=== PATIENT | male | born 1970 | race Caucasian/White ===

== ENCOUNTER 2019-08-21 09:46 | Emergency (ER) | payer SELFPAY ==
[~2019-08-21] VITALS: Ht 175.3 cm; Wt 88.6 kg
[2019-08-21 10:10] VITALS: BP 117/65
--- NOTE | 2019-08-21 10:18 | PHYS DOC ---
Past Medical History Past Medical History: No Pertinent History Past Surgical History: No Surgical History Smoking Status: Current Every Day Smoker Alcohol Use: None Drug Use: None Adult General Chief Complaint Chief Complaint: PAIN ON URINATION [facility] Patient is a 48 year old male without history of medical problem who presents with pain with urination. Patient complaining of urinary frequency and dysuria for 1 week and hematuria since yesterday without abdominal pain, nausea vomiting, fever and chills, back pain and flank pain. Patient states he had history of UTI several years ago and treated with antibiotics without problem. Patient denies penile discharge and having new sexual partner. Review of Systems Review of Systems Constitutional: Denies fever or chills [] Eyes: Denies change in visual acuity, redness, or eye pain [] HENT: Denies nasal congestion or sore throat [] Respiratory: Denies cough or shortness of breath [] Cardiovascular: No additional information not addressed in HPI [] GI: Denies abdominal pain, nausea, vomiting, bloody stools or diarrhea [] : Reports dysuria and hematuria Musculoskeletal: Denies back pain or joint pain [] Integument: Denies rash or skin lesions [] Neurologic: Denies headache, focal weakness or sensory changes [] Endocrine: Denies polyuria or polydipsia [] All other systems were reviewed and found to be within normal limits, except as documented in this note. Allergies Allergies Allergies Coded Allergies Type Severity Reaction Last Updated Verified No Known Drug Allergies 01/07/15 No Physical Exam Physical Exam Constitutional: Well developed, well nourished, no acute distress, non-toxic appearance. [] HENT: Normocephalic, atraumatic. Eyes: PERRLA, EOMI, conjunctiva normal, no discharge. [] Neck: Normal range of motion, no tenderness, supple, no stridor. [] Cardiovascular:Heart rate regular rhythm, no murmur [] Lungs & Thorax: Bilateral breath sounds clear to auscultation [] Abdomen: Bowel sounds normal, soft, no tenderness, no masses, no pulsatile masses. [] Skin: Warm, dry, no erythema, no rash. [] Back: No tenderness, no CVA tenderness. [] Extremities: No tenderness, no cyanosis, no clubbing, ROM intact, no edema. [] Neurologic: Alert and oriented X 3, no focal deficits noted. [] Psychologic: Affect normal, judgement normal, mood normal. [] Current Patient Data Vital Signs Vital Signs Date Time Temp Pulse Resp B/P (MAP) Pulse Ox O2 Delivery O2 Flow Rate FiO2 08/21/19 10:10 98.6 86 20 117/65 (82) 97 Room Air 98.6 Lab Values Laboratory Tests Test 08/21/19 09:30 Urine Collection Type Unknown Urine Color Red Urine Clarity Bloody Urine pH (<5.0-8.0) Urine Specific [place] (1.000-1.030) Urine Protein mg/dL (NEG-TRACE) Urine Glucose (UA) mg/dL (NEG) Urine Ketones (Stick) mg/dL (NEG) Urine Blood (NEG) Urine Nitrite (NEG) Urine Bilirubin (NEG) Urine Urobilinogen Dipstick mg/dL (0.2 mg/dL) Urine Leukocyte Esterase (NEG) Urine RBC Tntc /HPF (0-2) Urine WBC Field obscured /HPF (0-4) Urine Squamous Epithelial Cells /LPF Urine Bacteria /HPF (0-FEW) EKG EKG [] Radiology/Procedures Radiology/Procedures [] Course & Med Decision Making Course & Med Decision Making Pertinent Labs reviewed. (See chart for details) Evaluation of patient nurse showed 48-year-old male patient with complaining of urinary symptoms for 1 week and hematuria since last night. Patient had unremarkable physical exam. UA showed loaded blood in urine. Patient was informed to follow-up with urology if not getting better with treatment with Cipro and Pyridium. I've spoken with the patient and/or caregivers. I've explained the patient's condition, diagnosis and treatment plan based on information available to me at this time. I've answered the patient's and/or caregivers questions and addressed any concerns. The patient and/or caregivers have a good understanding the patient's diagnosis, condition and treatment plan as can be expected at this point. Vital signs have been stabilized. The patient's condition is stable for discharge from the emergency department. The patient will pursue further outpatient evaluation with her primary care provider or other designated consulting physician as outlined in the discharge instructions. Patient and/or caregivers are agreeable to this plan of care and follow-up instructions have been explained in detail. The patient and/or caregivers have received these instructions in written format and expressed understanding of these discharge instructions. The patient and her caregivers are aware that if any significant change in condition or worsening of symptoms should prompt him to immediately return to this of the closest emergency department. If an emergent department is not readily available I would encourage him to call 911. Rupinder Disclaimer Rupinder Disclaimer This electronic medical record was generated, in whole or in part, using a voice recognition dictation system. Departure Departure Impression: Primary Impression: Hematuria Additional Impression: Dysuria Disposition: HOME, SELF-CARE (At 1109) Condition: STABLE Referrals: NO PCP (PCP) Patient Instructions: Dysuria, Hematuria, Adult, Urinary Tract Infection Additional Instructions: Drink plenty of liquids Follow-up with your primary care physician in 3-5 days Return to ER if not getting better Follow-up with urologist at [facility] if not getting better in 5 to 7 days Thank you for visiting [facility]. We appreciate you trusting us with your care. If any additional problems come up don't hesitate to return to visit us. Please follow up with your primary care provider so they can plan additional care if needed and know about the problem that you had. If symptoms worsen come back to the Emergency Department. Any concerning symptoms that start such as chest pain, shortness of air, weakness or numbness on one side of the body, running high fevers or any other concerning symptoms return to the ER. Scripts Phenazopyridine Hcl (PYRIDIUM) 100 Mg Tablet 100 MG PO TID for dysuria, #10 TAB PRN dysuria Prov: VINCE CISNEROS MD 08/21/19 Ciprofloxacin Hcl (CIPRO) 250 Mg Tablet 1 TAB PO BID for infection, #14 TAB Prov: VINCE CISNEROS MD 08/21/19 Problem Qualifiers Primary Impression: Hematuria Hematuria type: gross Qualified Codes: R31.0 - Gross hematuria VINCE CISNEROS MD Aug 21, 2019 10:18
[2019-08-21 10:43] LABS: CLARITY,URINE BLOODY; COLOR,URINE RED
[2019-08-21 10:44] LABS: RBC,URINE TNTC /HPF (0-2)
[2019-08-21 10:46] LABS: WBC,URINE FIELD OBSCURED /HPF (0-4)
[2019-08-21] MEDS ORDERED: CIPR250T30 PO (11:11)
[2019-08-21] MEDS ORDERED: PHEN100T82 PO (11:12)
== END 2019-08-21 11:22 | disposition home or self-care (01) ==
LOC: ER 09:46
DX: R31.0 Gross hematuria (principal); R30.0 Dysuria; R30.9 Painful micturition, unspecified; F17.200 Nicotine dependence, unspecified, uncomplicated
CPT/HCPCS: 81001; 87086; 99283

== ENCOUNTER 2019-11-23 04:36 | Emergency (ER) | payer SELFPAY ==
[~2019-11-23] VITALS: Ht 175.3 cm; Wt 91.0 kg
[~2019-11-23 04:36] MED LIST: CIPR250T30 PO; PHEN100T82 PO
--- NOTE | 2019-11-23 05:29 | PHYS DOC ---
Past Medical History Past Medical History: No Pertinent History Past Surgical History: No Surgical History Smoking Status: Current Every Day Smoker Alcohol Use: None Drug Use: None General Adult EDM: Chief Complaint: BLOOD IN URINE HPI: HPI: Patient is a 48 year old male who presents with complaint of urinary discomfort and hematuria for the last day. Patient states that he has a history of urinary tract infections and this is exactly how they start. He denies any fever. He denies any nausea or vomiting. He does indicate that he has urinary frequency as well. [] Review of Systems: Review of Systems: Constitutional: Denies fever or chills. [] Respiratory: Denies cough or shortness of breath. [] Cardiovascular: Denies chest pain or edema. [] : Complains of dysuria. [] Musculoskeletal: Denies back pain or joint pain. [] Integument: Denies rash. [] Heart Score: Risk Factors: Risk Factors: DM, Current or recent (<one month) smoker, HTN, HLP, family history of CAD, obesity. Risk Scores: Score 0 - 3: 2.5% MACE over next 6 weeks - Discharge Home Score 4 - 6: 20.3% MACE over next 6 weeks - Admit for Clinical Observation Score 7 - 10: 72.7% MACE over next 6 weeks - Early Invasive Strategies Allergies: Allergies: Allergies Coded Allergies Type Severity Reaction Last Updated Verified No Known Drug Allergies 01/07/15 No Physical Exam: PE: Constitutional: Well developed, well nourished, no acute distress, non-toxic appearance. [] Cardiovascular: Regular rate and rhythm [] Lungs & Thorax: Bilateral breath sounds clear to auscultation [] Abdomen: Bowel sounds normal, soft, with mild suprapubic tenderness. [] Skin: Warm, dry, no erythema, no rash. [] EKG: EKG: [] Radiology/Procedures: Radiology/Procedures: [] Course & Med Decision Making: Course & Med Decision Making Pertinent Labs and Imaging studies reviewed. (See chart for details) [] Dragon Disclaimer: Dragon Disclaimer: This electronic medical record was generated, in whole or in part, using a voice recognition dictation system. Departure Departure Impression: Primary Impression: UTI (urinary tract infection) Qualified Codes: N39.0 - Urinary tract infection, site not specified; R31.9 - Hematuria, unspecified Additional Impression: Hematuria Qualified Codes: R31.9 - Hematuria, unspecified Disposition: 01 HOME, SELF-CARE Condition: STABLE Referrals: NO PCP (PCP) Patient Instructions: Hematuria, Adult, Urinary Tract Infection Scripts Phenazopyridine Hcl (PYRIDIUM) 100 Mg Tablet 1 TAB PO TID for urinary discomfort for 5 Days, #15 TAB 0 Refills Prov: JUSTIN KIRKLAND Jr. DO 11/23/19 Sulfamethoxazole/Trimethoprim (BACTRIM DS TABLET) 1 Each Tablet 1 TAB PO BID for 10 Days, #20 TAB 0 Refills Prov: JUSTIN KIRKLAND Jr. DO 11/23/19 Justicifation of Admission Dx: Justifications for Admission: Justification of Admission Dx: Comment: (Not applicable) JUSTIN KIRKLAND Jr. DO Nov 23, 2019 05:29
[2019-11-23 05:46] LABS: CLARITY,URINE BLOODY; COLOR,URINE BROWN
[2019-11-23 05:47] LABS: RBC,URINE FIELD OBSCURED /HPF (0-2)
[2019-11-23 05:48] LABS: AMORPHOUS SEDIMENT,UR PRESENT /HPF; BACTERIA,URINE MODERATE /HPF (0-FEW)
[2019-11-23] MEDS ORDERED: SULF1TAB24 PO (06:01)
[2019-11-23] MEDS ORDERED: PHEN100T82 PO (06:01)
[2019-11-23 06:37] VITALS: BP 135/75
== END 2019-11-23 06:20 | disposition home or self-care (01) ==
LOC: ER 04:36
DX: N39.0 Urinary tract infection, site not specified (principal); R31.9 Hematuria, unspecified; F17.200 Nicotine dependence, unspecified, uncomplicated
CPT/HCPCS: 81001; 87086; 99283

== ENCOUNTER 2019-11-26 11:23 | Emergency (ER) | payer SELFPAY ==
[~2019-11-26] VITALS: Ht 175.3 cm; Wt 91.0 kg
[~2019-11-26 11:23] MED LIST changes: +SULF1TAB24 PO
[2019-11-26 11:46] VITALS: BP 121/77
--- NOTE | 2019-11-26 12:17 | PHYS DOC ---
Past Medical History Past Medical History: No Pertinent History (PANCHO HANSON APRN) Past Surgical History: No Surgical History (PANCHO HANSON APRN) Smoking Status: Current Every Day Smoker Alcohol Use: Occasionally Drug Use: None (PANCHO HANSON APRN) General Adult EDM: Chief Complaint: BLOOD IN URINE HPI: HPI: Patient is a 48 year old male who presents with was here and seen by Dr. Crawford for hematuria on 11/22. He was given Bactrim and Pyridium. He states that he never got the Pyridium filled. He is here today because he states that he still has bloody urine. Patient states that no blood work or CT scan because he states he already knew what it was and it was an infection. When I look at the urine culture is states that there is no bacteria that is indicative of a in fection. I told the patient this and I recommended that we do some blood work and a CT abdomen pelvis or even an ultrasound. He is refusing and states that he does not have insurance. I asked the patient what else he would like me to do for him as there is no infection and we should really look into what is causing this hematuria. This could possibly be cancer or kidney stones I do not know. Patient states to just release him. Patient is having to leave AMA. Patient is 1 of Pyridium prescription yet he denies pain, abdominal pain, nausea, vomiting, fever, back pain, scrotal pain, diarrhea. I told the patient that the Pyridium will not help him and in fact it does change his urine colors. Patient does not have a primary care provider to follow-up with. Patient does not have a urologist to follow-up with. It is stressed the patient that he really needs further testing, and if he has cancer or something else he can become very ill and with the possibility of , patient is wanting to leave AMA. (PANCHO HANSON APRN) Review of Systems: Review of Systems: Constitutional: Denies fever or chills. [] Eyes: Denies change in visual acuity. [] HENT: Denies nasal congestion or sore throat. [] Respiratory: Denies cough or shortness of breath. [] Cardiovascular: Denies chest pain or edema. [] GI: Denies abdominal pain, nausea, vomiting, bloody stools or diarrhea. [] : Denies dysuria. Hematuria. [] Musculoskeletal: Denies back pain or joint pain. [] Integument: Denies rash. [] Neurologic: Denies headache, focal weakness or sensory changes. [] Endocrine: Denies polyuria or polydipsia. [] Lymphatic: Denies swollen glands. [] Psychiatric: Denies depression or anxiety. [] ([facility]) Heart Score: Risk Factors: Risk Factors: DM, Current or recent (<one month) smoker, HTN, HLP, family history of CAD, obesity. Risk Scores: Score 0 - 3: 2.5% MACE over next 6 weeks - Discharge Home Score 4 - 6: 20.3% MACE over next 6 weeks - Admit for Clinical Observation Score 7 - 10: 72.7% MACE over next 6 weeks - Early Invasive Strategies ([facility]) Allergies: Allergies: Allergies Coded Allergies Type Severity Reaction Last Updated Verified No Known Drug Allergies 01/07/15 No ([facility]) Physical Exam: PE: Constitutional: Well developed, well nourished, no acute distress, non-toxic appearance. [] HENT: Normocephalic, atraumatic, bilateral external ears normal, oropharynx moist, no oral exudates, nose normal. [] Eyes: PERRLA, EOMI, conjunctiva normal, no discharge. [] Neck: Normal range of motion, no tenderness, supple, no stridor. [] Cardiovascular:Heart rate regular rhythm, no murmur [] Lungs & Thorax: Bilateral breath sounds clear to auscultation [] Abdomen: Bowel sounds normal, soft, no tenderness, no masses, no pulsatile masses. [] Skin: Warm, dry, no erythema, no rash. [] Back: No tenderness, no CVA tenderness. [] Extremities: No tenderness, no cyanosis, no clubbing, ROM intact, no edema. [] Neurologic: Alert and oriented X 3, normal motor function, normal sensory function, no focal deficits noted. [] Psychologic: Affect normal, judgement normal, mood normal. Normal physical exam [] ([facility]) EKG: EKG: [] ([facility]) Radiology/Procedures: Radiology/Procedures: [] (PANCHO HANSON APRN) Course & Med Decision Making: Course & Med Decision Making Pertinent Labs and Imaging studies reviewed. (See chart for details) Alert and oriented. Ambulatory with steady gait. Skin pink warm and dry. Speaks in full complete sentences. See HPI. After talking the patient further he states he just wants to leave AMA. Abdomen is soft and nontender. No CVA tenderness. Afebrile. [] (PANCHO HANSON APRN) Dragon Disclaimer: Dragon Disclaimer: This electronic medical record was generated, in whole or in part, using a voice recognition dictation system. (PANCHO HANSON APRN) Departure Departure Impression: Primary Impression: Hematuria Qualified Codes: R31.9 - Hematuria, unspecified Disposition: 07 AGAINST MEDICAL ADVICE Condition: STABLE Referrals: NO PCP (PCP) Justicifation of Admission Dx: Justifications for Admission: Justification of Admission Dx: Comment: (PANCHO HANSON APRN) Attending Signature Attending Signature I have participated in the care of this patient and I have reviewed and agree with all pertinent clinical information above including history, exam, and recommendations. (SWETHA HALL DO) PANCHO HANSON APRN Nov 26, 2019 12:17 SWETHA HALL DO Nov 26, 2019 16:05
== END 2019-11-26 12:10 | disposition left against medical advice (07) ==
LOC: ER 11:23
DX: R31.9 Hematuria, unspecified (principal); F17.200 Nicotine dependence, unspecified, uncomplicated
CPT/HCPCS: 99281

== ENCOUNTER 2019-11-28 05:44 | Emergency (ER) | payer SELFPAY ==
[~2019-11-28] VITALS: Ht 175.3 cm; Wt 90.9 kg
[2019-11-28] MEDS ORDERED: CIPR500T94 PO (06:05)
[2019-11-28 06:14] LABS: CLARITY,URINE BLOODY; COLOR,URINE RED; RBC,URINE TNTC /HPF (0-2)
[2019-11-28 06:15] LABS: BACTERIA,URINE 0 /HPF (0-FEW)
[2019-11-28] MEDS ORDERED: IV NORMAL SALINE 1000ML BAG 1,000 ML IV ONE (06:30)
--- NOTE | 2019-11-28 06:30 | PHYS DOC ---
Past Medical History Past Medical History: UTI Past Surgical History: No Surgical History Smoking Status: Current Every Day Smoker Alcohol Use: Occasionally Drug Use: None General Adult EDM: Chief Complaint: BLOOD IN URINE HPI: HPI: Patient is a 48 year old who denies any past medical history (has no primary care physician or routine medical care), presents to the ED with complaints of painless hematuria for approximately 5 days. Patient was seen in the ED on November 22 for dysuria and hematuria, was prescribed Bactrim and Azo. Only refilled his Bactrim which he has been complaint with ([id number]). Patient returned to the ED November 25 with c/o hematuria, left AMA -provider recommended further imaging to evaluate for malignancy. Pt now returning with no UTI symptoms and feels like his hematuria should be resolved. Does report he has a large scrotal hernia. No prior imaging. Review of systems: Denies associated fever, chills, back pain, nausea, vomiting, cough, sore throat, dyspnea, hemoptysis, exertional dyspnea, orthopnea, chest pain or pressure, lightheadedness, weight loss, night sweats or syncope. Review of Systems: Review of Systems: Constitutional: Denies fever or chills. [] Eyes: Denies change in visual acuity. [] HENT: Denies nasal congestion or sore throat. [] Respiratory: Denies cough or shortness of breath. [] Cardiovascular: Denies chest pain or edema. [] GI: Denies abdominal pain, nausea, vomiting, bloody stools or diarrhea. [] : Denies dysuria. [] Musculoskeletal: Denies back pain or joint pain. [] Integument: Denies rash. [] Neurologic: Denies headache, focal weakness or sensory changes. [] Endocrine: Denies polyuria or polydipsia. [] Lymphatic: Denies swollen glands. [] Psychiatric: Denies depression or anxiety. [] Current Medications: Current Medications Medications (Trade) Dose Ordered Sig/Daisy Start Time Stop Time Status Last Admin Dose Admin Sodium Chloride 1,000 ml @ 1,000 mls/hr 1X ONCE 11/28/19 06:30 11/28/19 07:29 UNV Allergies: Allergies: Allergies Coded Allergies Type Severity Reaction Last Updated Verified No Known Drug Allergies 01/07/15 No Physical Exam: PE: Constitutional: Well developed, well nourished, no acute distress, non-toxic appearance. [] HENT: Normocephalic, atraumatic, bilateral external ears normal, oropharynx moist, no oral exudates, nose normal. [] Eyes: PERRLA, EOMI, conjunctiva normal, no discharge. [] Neck: Normal range of motion, no tenderness, supple, no stridor. [] Cardiovascular:Heart rate regular rhythm, no murmur [] Lungs & Thorax: Bilateral breath sounds clear to auscultation [] Abdomen: Bowel sounds normal, soft, no tenderness, no masses, no pulsatile masses. [] Skin: Warm, dry, no erythema, no rash. [] Back: No tenderness, no CVA tenderness. [] Extremities: No tenderness, no cyanosis, no clubbing, ROM intact, no edema. [] Neurologic: Alert and oriented X 3, normal motor function, normal sensory fun ction, no focal deficits noted. [] Psychologic: Affect normal, judgement normal, mood normal. [] Current Patient Data: Labs: Laboratory Tests Test 11/28/19 05:50 Urine Collection Type Unknown Urine Color Red Urine Clarity Bloody Urine pH (<5.0-8.0) Urine Specific [place] (1.000-1.030) Urine Protein mg/dL (NEG-TRACE) Urine Glucose (UA) mg/dL (NEG) Urine Ketones (Stick) mg/dL (NEG) Urine Blood (NEG) Urine Nitrite (NEG) Urine Bilirubin (NEG) Urine Urobilinogen Dipstick mg/dL (0.2 mg/dL) Urine Leukocyte Esterase (NEG) Urine RBC Tntc /HPF (0-2) Urine WBC 5-10 /HPF (0-4) Urine Bacteria 0 /HPF (0-FEW) Vital Signs: Vital Signs Date Time Temp Pulse Resp B/P (MAP) Pulse Ox O2 Delivery O2 Flow Rate FiO2 11/28/19 05:45 98.1 100 20 134/68 (90) 95 Room Air 98.1 EKG: EKG: [] Radiology/Procedures: Radiology/Procedures: IMAGING REPORT Signed PATIENT: ARMAAN YA ACCOUNT: [id number] : 1970 LOCATION: ER AGE: 48 SEX: M EXAM STATUS: REG ER ORD. PHYSICIAN: MARKEL RIVERS DO REASON: hematuria PROCEDURE: CT ABD PELV W/ IV CONTRST ONLY CT ABD PELV W/ IV CONTRST ONLY History: Hematuria Comparison: None. Technique: After administration of intravenous contrast, helical CT of the abdomen and pelvis was performed from the lung bases through the ischial tuberosities. Coronal and sagittal reconstructions were obtained. 60 mL of Omnipaque 300 were used. One or more of the following dose reduction techniques were utilized: Automated exposure control (AEC), Adjustment of mA and/or kV according to patient size, Use of iterative reconstruction technique such as ASiR, CT scan done according to ALARA and image gently/image wisely Abdomen Findings: The visualized lung bases are clear. The liver, gallbladder, pancreas, spleen, and bilateral adrenal glands are normal. Right renal atrophy. Moderate left hydroureteronephrosis. Very large right inguinal hernia containing large amount of abdominal fat, sigmoid colon, and the entire bladder. Bladder demonstrates marked circumferential but irregular wall thickening with foci of gas and high attenuation debris. Small fat-containing left inguinal hernia. No dilated large or small bowel. There is no mesenteric or retroperitoneal adenopathy. There is no pelvic or inguinal adenopathy. The abdominal aorta is normal in caliber. Degenerative changes of the spine. IMPRESSION: 1. Very large right inguinal hernia containing sigmoid colon and the entire bladder. Marked bladder wall thickening with high attenuation contents (probably blood products) and foci of gas, suspect hemorrhagic cystitis. There is some irregularity of the wall thickening and an underlying neoplasm is not excluded. Direct visualization is recommended. 2. Moderate left hydroureteronephrosis. 3. Right renal atrophy. Electronically signed by: Bc Manning MD (11/28/2019 8:02 AM) [id number] DICTATED and SIGNED BY: BC MANNING MD DATE: 11/28/19 0802 Impression: Impression: Concern for hemorrhagic cystitis, patient [facility] through his antibiotic regiment. Will dc bactrim and start cipro x14 days. Patient afebrile with no leukocytosis, is very well appearing. Has a mild GIL that will need to be followed up. Given concern for gas in bladder-pt was thoroughly educated to return immediately if he should develop any fever, chills, n/v/ or flu like sxs. Will refer patient to outpatient [facility] urology, strict ED return precautions for fever, back pain, nausea or vomiting. All patient's questions were answered and he was stable at time of discharge. Course & Med Decision Making: Course & Med Decision Making Pertinent Labs and Imaging studies reviewed. (See chart for details) [] Dragon Disclaimer: Dragon Disclaimer: This electronic medical record was generated, in whole or in part, using a voice recognition dictation system. Departure Departure Impression: Primary Impression: Hemorrhagic cystitis Additional Impression: Inguinal hernia, right Disposition: HOME, SELF-CARE Condition: STABLE Referrals: NO PCP (PCP) urology [phone] Patient Instructions: Hematuria, Adult, Urinary Tract Infection Scripts Ciprofloxacin (CIPRO) 500 Mg/5 Ml [email or web address].mc.rec 500 MG PO BID for 14 Days, SUSPENSION Prov: MARKEL RIVERS DO 11/28/19 Ciprofloxacin Hcl (CIPRO) 500 Mg Tablet 1 TAB PO BID for 14 Days, #28 TAB 0 Refills Prov: DELMY BLANCA DO 11/28/19 Justicifation of Admission Dx: Justifications for Admission: Justification of Admission Dx: N/A MARKEL RIVERS DO Nov 28, 2019 06:30
[2019-11-28 06:55] LABS: CALCIUM 8.8 mg/dL (8.5-10.1); CREATININE 1.4 mg/dL (0.7-1.3); GFR 53.9; POTASSIUM 4.3 mmol/L (3.5-5.1)
[2019-11-28 07:00] LABS: ALBUMIN 3.6 g/dL (3.4-5.0); ALBUMIN/GLOBULIN RATIO 1.1 (1.0-1.7); TOTAL BILIRUBIN 0.3 mg/dL (0.2-1.0); TOTAL PROTEIN 6.9 g/dL (6.4-8.2)
[2019-11-28 07:03] LABS: PROTHROMBIN TIME PATIENT 12.4 SEC (11.7-14.0)
[2019-11-28 07:07] LABS: BASO # 0.1 x10^3/uL (0.0-0.2); BASO % 1 % (0-3); EOS # 0.3 x10^3/uL (0.0-0.7); EOS % 3 % (0-3); HEMATOCRIT 46.2 % (39.0-53.0); HEMOGLOBIN 15.9 g/dL (13.0-17.5); LYMPH % 21 % (24-48); MEAN CORPUSCULAR HEMOGLOBIN 33 pg (25-35); MEAN CORPUSCULAR HGB CONC 35 g/dL (31-37); MEAN CORPUSCULAR VOLUME 97 fL (79-100); MONO # 1.3 x10^3/uL (0.0-1.1); MONO % 14 % (0-9); NEUT # 5.8 x10^3/uL (1.8-7.7); NEUT % 62 % (31-73); PLATELET COUNT 170 x10^3/uL (140-400); RED BLOOD COUNT 4.79 x10^6/uL (4.30-5.70); RED CELL DISTRIBUTION WIDTH 12.4 % (11.5-14.5); WHITE BLOOD COUNT 9.3 x10^3/uL (4.0-11.0)
[2019-11-28] MEDS ORDERED: CONTRAST GIVEN. MC PRN (07:15)
[2019-11-28] MEDS ORDERED: IOHEXOL 300 MG/ML 100ML VIAL. IV ONE (07:15)
--- NOTE | 2019-11-28 08:04 | RAD ---
CT ABD PELV W/ IV CONTRST ONLY History: Hematuria Comparison: None. Technique: After administration of intravenous contrast, helical CT of the abdomen and pelvis was performed from the lung bases through the ischial tuberosities. Coronal and sagittal reconstructions were obtained. 60 mL of Omnipaque 300 were used. One or more of the following dose reduction techniques were utilized: Automated exposure control (AEC), Adjustment of mA and/or kV according to patient size, Use of iterative reconstruction technique such as ASiR, CT scan done according to ALARA and image gently/image wisely Abdomen Findings: The visualized lung bases are clear. The liver, gallbladder, pancreas, spleen, and bilateral adrenal glands are normal. Right renal atrophy. Moderate left hydroureteronephrosis. Very large right inguinal hernia containing large amount of abdominal fat, sigmoid colon, and the entire bladder. Bladder demonstrates marked circumferential but irregular wall thickening with foci of gas and high attenuation debris. Small fat-containing left inguinal hernia. No dilated large or small bowel. There is no mesenteric or retroperitoneal adenopathy. There is no pelvic or inguinal adenopathy. The abdominal aorta is normal in caliber. Degenerative changes of the spine. IMPRESSION: 1. Very large right inguinal hernia containing sigmoid colon and the entire bladder. Marked bladder wall thickening with high attenuation contents (probably blood products) and foci of gas, suspect hemorrhagic cystitis. There is some irregularity of the wall thickening and an underlying neoplasm is not excluded. Direct visualization is recommended. 2. Moderate left hydroureteronephrosis. 3. Right renal atrophy. Electronically signed by: Louis Manning MD (11/28/2019 8:02 AM) [id number]
[2019-11-28] MEDS ORDERED: CIPR500S2 PO (08:39)
[2019-11-28 08:50] VITALS: BP 144/70
== END 2019-11-28 08:50 | disposition home or self-care (01) ==
LOC: ER 05:44
DX: N30.91 Cystitis, unspecified with hematuria (principal); K40.90 Unilateral inguinal hernia, without obstruction or gangrene, not specified as recurrent; R30.0 Dysuria; F17.200 Nicotine dependence, unspecified, uncomplicated
CPT/HCPCS: 36415; 74177; 80053; 81001; 85025; 85610; 85730; 87086; 99285; J7030; Q9967

== ENCOUNTER 2021-01-16 07:50 | Emergency (ER) | payer BC ==
[~2021-01-16] VITALS: Ht 175.3 cm; Wt 105.2 kg
[~2021-01-16 07:50] MED LIST changes: +CIPR500S2 PO; +CIPR500T94 PO
--- NOTE | 2021-01-16 09:37 | PHYS DOC ---
Past Medical History Past Medical History: UTI Past Surgical History: Other Additional Past Surgical Histo: hernia sx, suprpubic catheter placed Smoking Status: Current Every Day Smoker Alcohol Use: None Drug Use: None General Adult EDM: Chief Complaint: FLU SYMPTOM HPI: HPI: 50-year-old male past medical history of inguinal hernia with suprapubic Taveras catheter placed in September (states removal is planned for 01/28), presents to the ED with complaints of nonproductive cough, headache, nausea and vomiting that occurred after taking headache medicine [id number], loose watery stools. Patient states he is tolerating oral intake-had orange chicken for dinner. Vomiting and diarrhea has resolved. Reports he has been vaccinated for Covid. Voids spontaneously without any dysuria or hematuria. RN concern for possible afib on shelter monitor-no h/o per pt and brief emr review. Review of Systems: Review of Systems: Constitutional: Denies fever or chills. [] Eyes: Denies change in visual acuity. [] HENT: Denies nasal congestion or sore throat. [] Respiratory: Denies hemoptysis or shortness of breath. [] Cardiovascular: Denies chest pain or edema. [] GI: Denies abdominal pain or bloody stools : Denies dysuria or hematuria Musculoskeletal: Denies back pain or joint pain. [] Integument: Denies rash or diaphoresis Neurologic: Denies neck stiffness, focal weakness or sensory changes. [] Endocrine: Denies polyuria or polydipsia. [] Lymphatic: Denies swollen glands. [] Psychiatric: Denies depression or anxiety. [] Heart Score: C/O Chest Pain: No Risk Factors: Risk Factors: DM, Current or recent (<one month) smoker, HTN, HLP, family history of CAD, obesity. Risk Scores: Score 0 - 3: 2.5% MACE over next 6 weeks - Discharge Home Score 4 - 6: 20.3% MACE over next 6 weeks - Admit for Clinical Observation Score 7 - 10: 72.7% MACE over next 6 weeks - Early Invasive Strategies Allergies: Allergies: Allergies Coded Allergies Type Severity Reaction Last Updated Verified No Known Drug Allergies 01/07/15 No Physical Exam: PE: Constitutional: Well developed, well nourished, no acute distress, non-toxic appearance. HENT: Normocephalic, atraumatic, slightly dry mucous membranes Eyes: EOMI, conjunctiva normal, no discharge. Neck: Normal range of motion, supple, Cardiovascular: S1/2 present, tachycardic-109 Lungs & Thorax: Speaking in full sentences, bilateral equal chest rise, no tachypnea or increased work of breathing Abdomen: soft, no tenderness, no distention/rigidity/guarding, Skin: Warm, dry, no erythema, no rash. [] Back: No tenderness, no CVA tenderness. [] Extremities: No tenderness, no cyanosis, no lower extremity edema Neurologic: Alert and oriented X 3, normal motor function, normal sensory function, no focal deficits noted. [] Psychologic: Affect normal, judgement normal, mood normal. [] : suprapubic Taveras catheter with no attached bag, Current Patient Data: Vital Signs: Vital Signs Date Time Temp Pulse Resp B/P (MAP) Pulse Ox O2 Delivery O2 Flow Rate FiO2 01/16/21 09:11 98.6 109 20 151/72 96 Room Air 98.6 EKG: EK irregular rhythm 105 bpm, extreme right axis deviation, normal intervals, concern for MAT versus A. fib with poor baseline 1047 sinus rhythm 90 bpm, left axis deviation, normal intervals, T wave inversion lead III, no ST elevations or ST depression Radiology/Procedures: Radiology/Procedures: IMAGING REPORT Signed PATIENT: ARMAAN YA ACCOUNT: [id number] : 1970 LOCATION: ER AGE: 50 SEX: M EXAM STATUS: REG ER ORD. PHYSICIAN: MARKEL RIVERS DO REASON: cough PROCEDURE: CHEST AP ONLY EXAM: AP View of the chest DATE: 01/16/2021 9:08 AM INDICATION: Reason: cough / Spl. Instructions: / History: COMPARISON: No Prior FINDINGS: The heart is not enlarged. Mediastinal and hilar contours are normal. Vague patchy groundglass opacities lower lungs likely may represent consolidative process such as pneumonia. No pleural effusion or pneumothorax. IMPRESSION: Vague patchy groundglass opacities lower lungs likely may represent consolidative process such as pneumonia. Electronically signed by: Parmjit Amezcua MD (01/16/2021 9:42 AM) [id number] DICTATED and SIGNED BY: PARMJIT AMEZCUA MD DATE: 01/16/21 [id number] 0 Course & Med Decision Making: Course & Med Decision Making Pertinent Labs and Imaging studies reviewed. (See chart for details) COVID-19 CRITERIA: The patient was evaluated during the global COVID-19 pandemic, and that diagnosis was suspected/considered upon their initial presentation. Their evaluation, treatment and testing was consistent with current guidelines for patients who present with complaints or symptoms that may be related to COVID-19. Concern for URI sxs, Covid test pending, chest x-ray consistent with atypical pneumonia (azithromycin). Urinalysis also w/urinary tract infection (Keflex for complicated UTI). Patient refusing IV placement and labs. Patient persistently tachycardic at 109, 103 and is refusing any further medical management-patient is requesting discharge AGAINST MEDICAL ADVICE. I explained to pt he could be showing signs of sepsis 2/2 uti, pna or both. Will discharge home with strict ED return precautions were given for neurologic deficits, chest pain, increased work of breathing or hemoptysis. Encouraged urgent outpatient follow-up with PMD in 1 to 2 days. Pt was educated on all prescription medications and adverse effects. The patient has decided to leave our facility against medical advice. I have assessed patient's ability to make informed decision and feel the patient has the capacity to comprehend information regarding the current medical condition and appreciates the impact of the disease or condition and the consequences of various options for treatment, including foregoing treatment. The patient possesses the ability to evaluate all treatment options, comparing the risks and benefits of each option, communicate his or her choice in a consistent manner over time, and is able to make rational choices. I explained to the patient further testing, treatment, and evaluation I would like to perform in the emergency department visit as well as any possible alternatives that can be accomplished in a timely manner. I have outlined the possible risks of foregoing any or all of these interventions and the patient understands and acknowledges that the decision to leave may result in undesirable consequences such as , permanent disability, and/or loss of current lifestyle. Even though leaving AMA is not ideal, I have instructed the patient to follow any discharge instructions given, take any medications prescribed, and resume care as soon as possible with another provider. This conversation was witnessed by another member of the emergency department staff and we clearly communicated the patient is welcome to return anytime to continue care at our facility. Dragon Disclaimer: Dragon Disclaimer: This electronic medical record was generated, in whole or in part, using a voice recognition dictation system. Departure Departure Impression: Primary Impression: UTI (urinary tract infection) Additional Impressions: Person under investigation for COVID-19 Pneumonia Tachycardia, unspecified Left against medical advice Disposition: LEFT AGAINST MEDICAL ADVICE Condition: STABLE Referrals: NO PCP (PCP) Patient Instructions: Discharge Against Medical Advice, Pneumonia, Adult, Urinary Tract Infection Additional Instructions: Return to ED immediately if your oxygen level drops below 90% (purchase a pulse oximetry at a medical supply store), difficulties breathing including rapid breathing or increased work of breathing (skin sucking under ribs), chest pain or stroke-like symptoms (facial droop, speech changes, arm/leg weakness). You have been tested for or diagnosed with COVID-19. It is an infection caused by a new type of coronavirus. COVID-19 will cause cold-like or mild flu symptoms in most. It can cause more severe symptoms like problems breathing in some. There is no treatment for COVID-19. The body will clear the infection over time. Self-care will help to ease discomfort. Steps to Take: Self-Care Rest as needed. Healthy habits may help you feel better. Steps include: Choose healthy foods including fruits and vegetables. Drink water throughout the day. Get plenty of sleep each night. If you smoke, try to quit. It may ease breathing. Avoid alcohol. Keep Others Healthy The virus can spread to others. Droplets are released every time you sneeze or cough. The droplets can get into the mouth, nose, or eyes of people near you and lead to infection. To lower the chances of spreading COVID-19 to others: Stay at home until your doctor has said it is safe to leave. If you tested positive this will mean staying isolated until both of the following are true: At least 7 days have passed since the start of illness. You are free of fever for at least 72 hours without the use of medicine. During this time: - Avoid public areas, events, or transportation. Do not return to work or school until your doctor has said it is safe to do so. - Call ahead if you need to go to a medical center. Let them know you may have COVID-19. It will help them guide you where to go. They may also ask you to wear a facemask when you come to the office. - If you call for emergency medical services, let them know you may have COVID- 19. While at home: - Try to avoid close contact with others. Stay about 6 feet away. - If possible, spend most of your time in a separate room from others. - Use a face mask if you will be in close contact with others such as sharing a room or vehicle. - Have someone wipe down common surfaces in the home. Use household weatherization coordinator every day on areas like doorknobs, counters, or sinks. - Cough or sneeze into a tissue. Throw the tissue away right after use. If a tissue is not available, cough or sneeze into your elbow. - Wash your hands often. Wash them after sneezing or coughing. Use soap and water and wash for at least 20 seconds. Alcohol based hand wall cleaner can be used if soap and water is not available. - Do not prepare food for others. Avoid sharing personal items like forks, spoons, or toothbrushes. - Avoid close contact with pets while you are sick. There is no evidence of the virus passing to pets. This is a safety step until more is known about this virus. Isolation can be frustrating. Social interaction can help. Keep in touch with friends and family through phone and tech options. You can still interact with others in your home, just keep a safe distance of about 6 feet. Follow-up: Your doctors office will check in with you to see if there are any changes in your health. You may be asked to keep track of symptoms to share with them. They will also let you know when you are clear to be in public again. Problems to Look Out For: Contact your doctor if your recovery is not going as you expect. Get emergency care if you have problems such as: - Trouble breathing - Nonstop chest pain or pressure - Changes in awareness, confusion, or problems waking - Lips or face have bluish color - Worsening of symptoms If you think you have an emergency, call for emergency medical services right away. As [facility] from [facility] Azithromycin (ZITHROMAX) 250 Mg Tablet 1 PKG PO UD, #6 TAB Prov: MARKEL RIVERS DO 01/16/21 Cephalexin (CEPHALEXIN) 500 Mg Capsule 1 CAP PO BID for 14 Days, #28 CAP Prov: MARKEL RIVERS DO 01/16/21 MARKEL RIVERS DO Jan 16, 2021 09:37
--- NOTE | 2021-01-16 09:44 | RAD ---
EXAM: AP View of the chest DATE: 01/16/2021 9:08 AM INDICATION: Reason: cough / Spl. Instructions: / History: COMPARISON: No Prior FINDINGS: The heart is not enlarged. Mediastinal and hilar contours are normal. Vague patchy groundglass opacities lower lungs likely may represent consolidative process such as pne umonia. No pleural effusion or pneumothorax. IMPRESSION: Vague patchy groundglass opacities lower lungs likely may represent consolidative process such as pne umonia. Electronically signed by: Parmjit Quinn MD (01/16/2021 9:42 AM) [id number]
[2021-01-16] MEDS ORDERED: IV NORMAL SALINE 1000ML BAG 1,000 ML IV ONE (10:00)
[2021-01-16 10:07] LABS: BILIRUBIN,URINE NEGATIVE (NEG); CLARITY,URINE CLOUDY; COLOR,URINE AMBER; NITRITE,URINE NEGATIVE (NEG); PROTEIN,URINE 100 mg/dL (NEG-TRACE)
[2021-01-16 10:23] LABS: BACTERIA,URINE MANY /HPF (0-FEW); WBC,URINE TNTC /HPF (0-4)
[2021-01-16] MEDS ORDERED: AZIT250T PO (12:52)
[2021-01-16] MEDS ORDERED: CEPH500C PO (12:52)
[2021-01-16 13:25] VITALS: BP 119/76
--- NOTE | 2021-01-16 14:12 | EKG ---
[facility] [address] [place] [address] Test Date: 2021-01-16 Test Time: 10:47:14 Pat Name: ARMAAN YA Department: Room: Gender: M [employer]: : 1970 Requested By: MARKEL RIVERS Order Number: [id number] Reading MD: Measurements Intervals [place] Rate: 90 P: -28 AL: 170 QRS: -53 QRSD: 82 T: 8 QT: 316 QTc: 390 Interpretive Statements SINUS RHYTHM ABNORMAL LEFT AXIS DEVIATION QRS(T) CONTOUR ABNORMALITY CONSISTENT WITH INFERIOR INFARCT AGE UNDETERMINED ABNORMAL ECG RI6.02 No previous ECG available for comparison
--- NOTE | 2021-01-17 12:48 | NUR ---
IP: Informed pt of negative covid test. Pt verbalized understanding.
== END 2021-01-16 13:58 | disposition left against medical advice (07) ==
LOC: ER 07:50
DX: N39.0 Urinary tract infection, site not specified (principal); J18.9 Pneumonia, unspecified organism; R00.0 Tachycardia, unspecified; F17.200 Nicotine dependence, unspecified, uncomplicated; Z20.822 Contact with and (suspected) exposure to COVID-19; Z87.440 Personal history of urinary (tract) infections
CPT/HCPCS: 71045; 81001; 87077; 87086; 87186; 87426; 93005; 99285; U0003; U0005